=== PATIENT | male | born 1990 | race Caucasian/White ===

== ENCOUNTER 2019-04-08 00:08 | Emergency (ER) | payer OTHER, SELFPAY ==
[2019-04-08 00:13] VITALS: BP 146/92; PULSE 108; RESP 16; TEMP 36.6; O2SAT 99
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
== END 2019-04-08 00:35 | disposition home or self-care (01) ==
LOC: ER 00:41
PROVIDERS: Emergency Provider Emergency Medicine; PCP Family Medicine
DX: S00.83XA Contusion of other part of head, initial encounter (principal); Y04.0XXA Assault by unarmed brawl or fight, initial encounter; Y99.0 Civilian activity done for income or pay
CPT/HCPCS: 99282

== ENCOUNTER 2020-08-06 11:59 | Emergency (ER) | payer OTHER, SELFPAY ==
[2020-08-06 12:09] VITALS: BP 154/78; PULSE 114; RESP 18; TEMP 36.5; O2SAT 99
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
[2020-08-06] MEDS: Amoxicillin 875/Clav. 125 TAB PO (12:38)
[2020-08-06 12:47] VITALS: PULSE 112; O2SAT 98
--- NOTE | 2020-08-06 12:48 | NUR.NOTE ---
pt washed both arms and the chest with a surgical scrub . bacitraicin applied to the bitten and scratched areas . no drsngs were needed Nursing Note:
== END 2020-08-06 13:13 | disposition home or self-care (01) ==
PROVIDERS: Emergency Provider Physician Assistant; PCP Family Medicine
DX: S20.371A Other superficial bite of right front wall of thorax, initial encounter (principal); S50.871A Other superficial bite of right forearm, initial encounter; S50.872A Other superficial bite of left forearm, initial encounter; S50.811A Abrasion of right forearm, initial encounter; S50.812A Abrasion of left forearm, initial encounter; S20.311A Abrasion of right front wall of thorax, initial encounter; Y04.1XXA Assault by human bite, initial encounter; Y99.0 Civilian activity done for income or pay
CPT/HCPCS: 99283

== ENCOUNTER 2022-03-11 10:15 | Outpatient (CLI) | payer OTHER, SELFPAY ==
--- NOTE | 2022-03-11 10:15 | RT.EKG_ITS ---
APPROVED REPORT Exam: Resting ECG Reason for Exam: palpatations Patient Location: O HR:100 bpm ECG Measurements Heart Rate 100 AXIS LA 123 P 48 QRSd 99 QRS 69 QT 357 T -27 QTc 461 Conclusion Sinus tachycardia...rate> 99 Borderline T abnormalities, inferior leads...T flat/neg, II III aVF
== END 2022-03-11 10:16 | disposition home or self-care (01) ==
LOC: DI.CM 10:16
PROVIDERS: PCP Family Medicine; Visit Provider Nurse Practitioner Family
DX: R07.89 Other chest pain (principal)
CPT/HCPCS: 93010

== ENCOUNTER 2022-11-20 08:47 | Outpatient (REF) | payer OTHER, SELFPAY ==
[2022-11-20 18:20] LABS: ALT 45 U/L (16-63); AST 25 U/L (15-37); Albumin 3.6 g/dL (3.4-5.0); Alkaline Phosphatase 69 U/L (46-116); Anion Gap 8.5 mmol/L (3-11); BUN 14 mg/dL (7-18); Bilirubin, Total 0.5 mg/dL (0.2-1.0); CO2 26.5 mmol/L (21.0-32.0); Calcium 9.5 mg/dL (8.5-10.1); Calculated LDL 169 mg/dL (<100); Chloride 100 mmol/L (98-107); Cholesterol 262 mg/dL (<200); Estimated GFR 102.55 (mL/min/1.73m2); Glucose 105 mg/dL (74-106); HDL Cholesterol 56 mg/dL (40-60); Sodium 135 mmol/L (136-145); Total Protein 8.3 g/dL (6.4-8.2); Triglyceride 187 mg/dL (<150)
== END 2022-11-20 08:48 | disposition home or self-care (01) ==
LOC: NCHCN 08:47
PROVIDERS: PCP Family Medicine; Visit Provider Physician Assistant
DX: Z00.00 Encounter for general adult medical examination without abnormal findings (principal); F10.20 Alcohol dependence, uncomplicated; Z13.220 Encounter for screening for lipoid disorders
CPT/HCPCS: 80053; 80061

== ENCOUNTER 2023-09-10 16:48 | Outpatient (REF) | payer SELFPAY ==
[2023-09-10 18:09] LABS: Calculated LDL 207 mg/dL (<100); Cholesterol 295 mg/dL (<200); HDL Cholesterol 62 mg/dL (40-60); Triglyceride 131 mg/dL (<150)
== END 2023-09-10 16:49 | disposition home or self-care (01) ==
LOC: NCHCN 16:48
PROVIDERS: PCP Family Medicine; Visit Provider Physician Assistant
DX: E78.5 Hyperlipidemia, unspecified (principal)
CPT/HCPCS: 80061

== ENCOUNTER 2024-05-12 08:20 | Outpatient (REF) | payer BC, SELFPAY ==
[2024-05-12 15:41] LABS: ALT 71 U/L (16-63); Calculated LDL 112 mg/dL (<100); Cholesterol 208 mg/dL (<200); HDL Cholesterol 65 mg/dL (>or=40); Triglyceride 158 mg/dL (<150)
== END 2024-05-12 08:21 | disposition home or self-care (01) ==
LOC: NCHCN 08:20
PROVIDERS: PCP Family Medicine; Visit Provider Physician Assistant
DX: E78.5 Hyperlipidemia, unspecified (principal)
CPT/HCPCS: 80061; 84460